=== PATIENT | female | born 1950 | race Hispanic/Latino ===

== ENCOUNTER 2023-03-09 19:41 | Emergency (ER) | payer OTHER, MEDICARE ==
[~2023-03-09] VITALS: Ht 157.5 cm; Wt 81.6 kg
[2023-03-09] MEDS ORDERED: ONDANSETRON HCL INJ 2MG/ML 2ML 2 MG/ML VIAL IV STA (19:57)
[2023-03-09] MEDS ORDERED: MECLIZINE HCL 12.5 MG TAB PO ONE (20:00)
[2023-03-09 20:06] LABS: BASOPHILS % 0.4 % (0.0-1.0); EOSINOPHILS # (AUTO) 0.1 (0.0-0.4); EOSINOPHILS % 1.7 % (0.0-6.0); HEMATOCRIT 37.8 % (34.2-44.1); MEAN CORPUSCULAR HEMOGLOBIN 27.3 pg (28-32); MEAN CORPUSCULAR HGB CONC 31.7 g/dL (31-35); MEAN CORPUSCULAR VOLUME 85.9 fL (81-99); MONOCYTES # (AUTO) 0.4 (0.2-0.8); MONOCYTES % 8.5 % (4.4-11.3); NEUTROPHILS # (AUTO) 3.2 (2.1-6.9); PLATELET COUNT 172 x10e3/uL (140-360)
[2023-03-09 20:23] LABS: ALANINE AMINOTRANSFERASE 8 IU/L (0-55); ALBUMIN 3.4 g/dL (3.5-5.0); ALBUMIN/GLOBULIN RATIO 0.9 (0.8-2.0); ALKALINE PHOSPHATASE 87 IU/L (40-150); ANION GAP 12.1 mmol/L (8-16); BLOOD UREA NITROGEN 23 mg/dL (7-26); BUN/CREATININE RATIO 19 (6-25); CALCIUM 9.2 mg/dL (8.4-10.2); CARBON DIOXIDE 26 mmol/L (22-29); CHLORIDE 107 mmol/L (98-107); CREATINE KINASE 46 IU/L (29-168); CREATININE, SERUM 1.19 mg/dL (0.57-1.11); GLUCOSE 98 mg/dL (74-118); POTASSIUM 4.1 mmol/L (3.5-5.1); SODIUM 141 mmol/L (136-145)
[2023-03-09 20:40] LABS: CLARITY,URINE CLOUDY (CLEAR); COLOR,URINE YELLOW (YELLOW); KETONES,URINE NEGATIVE (NEGATIVE); LEUKOCYTE ESTERASE ,URINE 1+ (NEGATIVE); NITRITE,URINE NEGATIVE (NEGATIVE); PROTEIN,URINE DIPSTICK NEGATIVE (NEGATIVE)
[2023-03-09 20:41] LABS: URINE UROBILINOGEN 0.2 mg/dL (0.2 - 1)
[2023-03-09 20:44] LABS: BACTERIA,URINE FEW /HPF; EPITHELIAL CELLS,URINE FEW /LPF; RBC,URINE 0-5 /HPF (0-5); WBC,URINE (MAN) 21-50 /HPF (0-5)
[2023-03-09] MEDS ORDERED: CEFDINIR300 MG PO (21:10)
[2023-03-09] MEDS ORDERED: ONDANSETRON ODT4 MG PO (21:10)
[2023-03-09] MEDS ORDERED: ANTIVERT25 M1 PO (21:10)
== END 2023-03-09 21:19 | disposition home or self-care (01) ==
LOC: ER 19:58
DX: H81.10 Benign paroxysmal vertigo, unspecified ear (principal); R51.9 Headache, unspecified; N39.0 Urinary tract infection, site not specified; I10 Essential (primary) hypertension; E78.5 Hyperlipidemia, unspecified
CPT/HCPCS: 36415; 70450; 80053; 81001; 82550; 82553; 84484; 85025; 93005; 99284; J2405; J8597

== ENCOUNTER 2023-12-03 17:23 | Emergency (ER) | payer MEDICARE, OTHER ==
[~2023-12-03] VITALS: Ht 157.5 cm; Wt 81.6 kg
[~2023-12-03 17:23] MED LIST: ANTIVERT25 M1 PO; CEFDINIR300 MG PO; ONDANSETRON ODT4 MG PO
[2023-12-03] MEDS ORDERED: KETOROLAC TROMETHAMINE 30 MG/ML VIAL IV STA (17:44)
[2023-12-03] MEDS ORDERED: SODIUM CHLORIDE 0.9% 1000ML 1,000 ML IV STA (17:44)
[2023-12-03] MEDS ORDERED: ONDANSETRON HCL INJ 2MG/ML 2ML 2 MG/ML VIAL IV STA ×2 (17:44→20:46)
[2023-12-03 18:23] LABS: BASOPHILS % 0.4 % (0.0-1.0); EOSINOPHILS # (AUTO) 0.1 (0.0-0.4); EOSINOPHILS % 1.6 % (0.0-6.0); HEMATOCRIT 38.7 % (34.2-44.1); HEMOGLOBIN 12.1 g/dL (12.0-16.0); LYMPHOCYTES # (AUTO) 1.1 (1.0-3.2); LYMPHOCYTES % 19.3 % (18.0-39.1); MEAN CORPUSCULAR HEMOGLOBIN 27.1 pg (28-32); MEAN CORPUSCULAR HGB CONC 31.3 g/dL (31-35); MEAN CORPUSCULAR VOLUME 86.8 fL (81-99); MONOCYTES # (AUTO) 0.4 (0.2-0.8); MONOCYTES % 6.2 % (4.4-11.3); NEUTROPHILS # (AUTO) 4.1 (2.1-6.9); NEUTROPHILS % 72.3 % (38.7-80.0); PLATELET COUNT 154 x10e3/uL (140-360); RED BLOOD COUNT 4.46 x10e6/uL (3.6-5.1); RED CELL DISTRIBUTION WIDTH 13.9 % (11.7-14.4); WHITE BLOOD COUNT 5.64 x10e3/uL (4.8-10.8)
[2023-12-03 18:35] LABS: BILIRUBIN,URINE NEGATIVE (NEGATIVE); CLARITY,URINE CLEAR (CLEAR); COLOR,URINE YELLOW (YELLOW); GLUCOSE, URINE NEGATIVE (NEGATIVE); KETONES,URINE NEGATIVE (NEGATIVE); LEUKOCYTE ESTERASE ,URINE 1+ (NEGATIVE); NITRITE,URINE NEGATIVE (NEGATIVE); PH,URINE 6 (5 - 7); PROTEIN,URINE DIPSTICK NEGATIVE (NEGATIVE); URINE UROBILINOGEN 0.2 mg/dL (0.2 - 1)
[2023-12-03 18:39] LABS: BACTERIA,URINE MANY /HPF; EPITHELIAL CELLS,URINE MODERATE /LPF; WBC,URINE (MAN) 21-50 /HPF (0-5)
[2023-12-03 18:43] LABS: ALBUMIN 3.8 g/dL (3.5-5.0); ANION GAP 15.6 mmol/L (8-16); BILIRUBIN,TOTAL 0.5 mg/dL (0.2-1.2); CALCIUM 9.5 mg/dL (8.4-10.2); CREATININE, SERUM 1.01 mg/dL (0.57-1.11); POTASSIUM 3.6 mmol/L (3.5-5.1); TOTAL PROTEIN 7.5 g/dL (6.5-8.1)
[2023-12-03] MEDS ORDERED: Morphine 4mg INJECTION 4 MG/ML INJ IV STA (20:46)
[2023-12-03] MEDS ORDERED: AUGMENTIN 500-1 EACH PO (21:44)
[2023-12-03] MEDS ORDERED: KETOROLAC TROME10 MG PO (21:44)
[2023-12-03] MEDS ORDERED: FLOMAX0.4 MG PO (21:44)
[2023-12-03 21:58] VITALS: BP 155/72; O2SAT 100
== END 2023-12-03 21:59 | disposition home or self-care (01) ==
LOC: ER 17:30
DX: R10.30 Lower abdominal pain, unspecified (principal); N13.2 Hydronephrosis with renal and ureteral calculous obstruction; R82.71 Bacteriuria; K57.90 Diverticulosis of intestine, part unspecified, without perforation or abscess without bleeding; R91.8 Other nonspecific abnormal finding of lung field; I10 Essential (primary) hypertension; E78.5 Hyperlipidemia, unspecified
CPT/HCPCS: 36415; 74176; 80053; 81001; 83690; 85025; 99284; J1885; J2270; J2405; J7030